=== PATIENT | male | born 1945 | race Caucasian/White ===

== ENCOUNTER → 2018-04-06 | Outpatient (CLI) | payer OTHER | LOC: MRI 09:07 | DX: D31 Benign neoplasm of eye and adnexa (principal); I67.82 Cerebral ischemia; H05.222 Edema of left orbit; Z98.42 Cataract extraction status, left eye; Z98.41 Cataract extraction status, right eye ==

== ENCOUNTER 2018-06-17 22:50 | Emergency (ER) | payer OTHER ==
[~2018-06-17] VITALS: Ht 177.8 cm; Wt 99.8 kg
--- NOTE | ~2018-06-17 | EKG ---
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
[2018-06-17 23:42] LABS: HEMOGLOBIN 14.1 gm/dL (14.0-18.0); MCH 29.8 pg (26.0-34.0); MCHC 34.4 g/dL (28.0-37.0); MCV 86.7 fL (80.0-100.0); RBC 4.73 mil/uL (4.50-6.00); RDW 13.2 % (10.5-14.5); WBC 6.8 thou/uL (4.0-11.0)
[2018-06-17 23:44] LABS: ANION GAP 8 mmol/L (7-16); BUN 21 mg/dL (7-18); CALCIUM 8.8 mg/dL (8.5-10.1); CHLORIDE 106 mmol/L (98-107); CO2 28 mmol/L (21-32); GLUCOSE 114 mg/dL (74-106); POTASSIUM 3.5 mmol/L (3.5-5.1); SODIUM 142 mmol/L (136-145)
[2018-06-17 23:53] LABS: ALBUMIN 3.6 g/dL (3.4-5.0); SGOT 23 U/L (15-37); SGPT 36 U/L (30-65); TOTAL BILIRUBIN 0.5 mg/dL (<0.1-1.0); TOTAL PROTEIN 7.1 g/dL (6.4-8.2); TROPONIN-I <0.06 ng/mL (<0.06)
[2018-06-18 00:44] VITALS: BP 161/85
[2018-07-13] MEDS ORDERED: BENICAR20 MG PO (11:01)
[2018-07-13] MEDS ORDERED: BYSTOLIC 5 MG5 M1 PO (11:01)
[2018-07-13] MEDS ORDERED: MOBIC15 MG PO (11:02)
[2018-07-13] MEDS ORDERED: ATORVASTATIN CA40 MG PO (11:02)
[2018-07-13] MEDS ORDERED: ZYRTEC10 M5 PO (11:03)
[2018-07-13] MEDS ORDERED: FISH OIL 1,001000 M2 PO (11:03)
[2018-07-13] MEDS ORDERED: ASPIR 8181 MG PO (11:03)
[2018-07-13] MEDS ORDERED: NEXIUM20 MG PO (11:03)
[2018-07-13] MEDS ORDERED: [UNRECOGNIZED DRUG - OTHER] NASAL (11:04)
[2018-07-13] MEDS ORDERED: AYR SALINE NASA14 GM NASAL (11:05)
[2018-07-13] MEDS ORDERED: ZICAM NASAL (11:06)
== END 2018-06-18 00:46 | disposition home or self-care (01) ==
LOC: ER 22:50
PROVIDERS: Emergency Medicine
DX: I10 Essential (primary) hypertension (principal)

== ENCOUNTER 2018-07-17 05:29 | Day surgery (SDC) | payer OTHER ==
[~2018-07-17] VITALS: Ht 177.8 cm; Wt 99.8 kg
--- NOTE | ~2018-07-17 | PATH ---
[facility] [address] [place] [address] PATHOLOGY RPT PROCEDURE Name: PIERRE PRATER Room #: DEP [facility] M.R.#: [id number] Admission: 07/17/18 Date of : 47 Discharge: 07/17/18 Report #: [id number] Path Case #: [id number] [facility] Accession Number: [id number] . 01 Material submitted: . PORTION LEFT LACRIMAL GLAND . 01 Clinical history: . 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 02 Diagnosis: Lacrimal gland, "lacrimal gland biopsy": - Focal central collections of vessels suggestive if a hemangioma - Benign lacrimal gland with moderate chronic inflammation and fibrosis. - There is no evidence of malignancy. - Suggest clinical correlation. (SHA:adilson; 07/19/2018) MBR/07/19/2018 . 02 Electronically signed: . Adeel Mayberry MD, Pathologist NPI- [id number] . 01 Gross description: . The specimen is received in formalin, labeled "Rice, Pierre, portion left lacrimal gland", is an irregular fragment of turner-montoya rubbery soft tissue 1.5 x 0.7 x 0.6 cm. Serially sectioned and entirely submitted in A1. (SWS; 07/18/2018) SHS/SHS . 02 Pathologist provided ICD-10: H04.412 . 02 CPT . 879957 Specimen Comment: A courtesy copy of this report has been sent to Specimen Comment: [phone], , . Specimen Comment: Report sent to / DR BULLARD / DR VILLAVICENCIO Performed at: [address], [place] [id number] MD Isidro Azevedo MD Phone: [phone] Performed at: [address] [id number] MD Susy Watson MD Phone: [phone]
--- NOTE | ~2018-07-17 | O ---
[facility] [place] [address] OPERATIVE REPORT Name: BORIS PRATER Room #: 150-5 [facility]..#: [id number] Admission: 07/17/18 Attend Phys: Dario Gonzales MD Discharge: Date of : 47 Report #: [id number] THIS REPORT FOR: //name// CC: Mark Gonzales DATE OF SERVICE: 07/17/2018 PREOPERATIVE DIAGNOSIS: Left lacrimal gland mass. POSTOPERATIVE DIAGNOSIS: Left lacrimal gland mass. PROCEDURE: Left lateral orbitotomy with removal of bone and lesion. SURGEON: Dario Gonzales M.D. BSW: Mark Durbin MD ANESTHESIA: General. COMPLICATIONS: None. ESTIMATED BLOOD LOSS: 5 mL. INDICATIONS FOR SURGERY: This pleasant 73-year-old gentleman has a painless left dacryomegaly with minimal signs externally of inflammation. He is presumed to most likely have a benign lacrimal gland tumor, although an inflammatory process is also under consideration. Lack of inflammatory changes externally, however, generally mitigate against that being the most likely diagnosis, which is once again thought to be a benign lacrimal gland mass, such as a benign mixed tumor of the lacrimal gland. The current procedure is being undertaken in order to determine the histologic nature of the underlying problem in order that directed therapy can be undertaken. Informed consent was obtained to include but not limited to potential risk for loss of vision, bleeding, infection, failure to improve the problem, the potential need for further surgery or treatment. DESCRIPTION OF PROCEDURE: The patient was taken to the operating room where general anesthesia was administered. The left lateral orbit was then anesthetized with Xylocaine with epinephrine mixed with equal parts 0.75% Marcaine with Wydase. The patient was then prepped and draped in the usual sterile fashion, received intravenous antibiotics and Decadron at the beginning of the case. A fine tip skin marking pen was then utilized to outline a left [facility] [address] [place] [address] OPERATIVE REPORT Name: BORIS PRATER Room #: 150-5 [facility]..#: [id number] Admission: 07/17/18 Attend Phys: Dario Gonzales MD Discharge: Date of : 47 Report #: [id number] upper lid crease incision out into the infratemporal fossa. The incision was then made with a 15C blade. The dissection was then carried down with a [place] needle on to the lateral orbital rim. The periosteum was then incised across the rim from the reflection of the roof to the floor. A [place]ans periosteal elevator was then used to elevate the periosteum out of the lateral orbit in the infratemporal fossa where the temporalis muscle was sculpted from the backside of the lateral orbital bone. A Co[place]ymans periosteal elevator was then used to elevate the periosteum internally where the zygomaticofacial and zygomaticotemporal neurovascular bundles were cauterized as they were encountered. The orbital contents were then protected with a malleable retractor as the temporalis muscle was retracted laterally as an oscillating saw was used to make a cut through the lateral orbit at the reflection of the roof and the reflection of the floor. Copious irrigation and suction was undertaken concomitantly as these cuts were made. A rongeur was then used to outfracture the bony orbital rim. The temporalis muscle was then packed with several 0.5 x 3 inch saline-soaked cottonoids and retracted out of the field as the deeper bone was brought to a blunt edge from its sharp edge from the fracture. The gland as palpated transperiosteally was unimpressive compared to the preoperative imaging. The periosteum was opened and the lacrimal gland was identified utilizing combination of blunt and sharp techniques. Minimal monopolar cautery was used as necessary to control bleeding. The lacrimal gland was not crisply defined and appeared to be infiltrated somewhat with fat. It was not well encapsulated. The decision was made to just biopsy the gland rather than excise it as this process appeared to be more consistent with an inflammatory process rather than a neoplastic one or a benign mixed tumor as it has been thought at the beginning of the case. The anterior lateral tip of the lacrimal gland was then amputated, following which hemostasis was achieved with pinpoint monopolar cautery. The cottonoids were removed from the field and the temporalis muscle was cauterized as necessary. The periosteum was then closed with interrupted Vicryl sutures. The subcutaneous structures were then closed with interrupted Vicryl sutures both deep and superficially. The skin was closed with 6-0 plain gut sutures. The bone removed at the beginning of the case was not replaced at the end of the procedure. The wound was then dressed with erythromycin ophthalmic ointment. The patient subsequently transported to the recovery area having tolerated the procedure well with no anesthetic or operative complications being noted. By: 1758 1829 Dario Gonzales MD /nt
[~2018-07-17 05:29] MED LIST: ASPIR 8181 MG PO; ATORVASTATIN CA40 MG PO; AYR SALINE NASA14 GM NASAL; BENICAR20 MG PO; BYSTOLIC 5 MG5 M1 PO; FISH OIL 1,001000 M2 PO; MOBIC15 MG PO; NEXIUM20 MG PO; ZICAM NASAL; ZYRTEC10 M5 PO; [UNRECOGNIZED DRUG - OTHER] NASAL
== END 2018-07-17 19:07 | disposition home or self-care (01) ==
LOC: TBA 05:29 → OR 05:29
DX: H04.02 Chronic dacryoadenitis (principal); H04.89 Other disorders of lacrimal system; I10 Essential (primary) hypertension; K21.9 Gastro-esophageal reflux disease without esophagitis; Z98.41 Cataract extraction status, right eye; Z98.42 Cataract extraction status, left eye; Z95.5 Presence of coronary angioplasty implant and graft; Z98.890 Other specified postprocedural states; Z79.899 Other long term (current) drug therapy; Z87.891 Personal history of nicotine dependence; Z79.82 Long term (current) use of aspirin
CPT/HCPCS: 50010; 50101; 50386; 50398; 51636; 53010; 56528; 56531; 56871; 62110; 62900; 70005

== ENCOUNTER → 2019-10-04 | Outpatient (CLI) | payer OTHER | LOC: CAT 11:35 | DX: N28.9 Disorder of kidney and ureter, unspecified (principal); I77.811 Abdominal aortic ectasia ==

== ENCOUNTER → 2020-02-11 | Outpatient (CLI) | payer OTHER | LOC: SJCVCIMAG 08:16 | DX: I25.119 Atherosclerotic heart disease of native coronary artery with unspecified angina pectoris (principal); I10 Essential (primary) hypertension; E78.5 Hyperlipidemia, unspecified; Z95.5 Presence of coronary angioplasty implant and graft ==

== ENCOUNTER → 2021-02-16 | Outpatient (CLI) | payer OTHER | LOC: SJCVC 13:21 | PROVIDERS: ATTEND Internal Medicine Cardiovascular Disease | DX: R94.31 Abnormal electrocardiogram [ECG] [EKG] (principal); I45.2 Bifascicular block; R00.1 Bradycardia, unspecified; I25.119 Atherosclerotic heart disease of native coronary artery with unspecified angina pectoris; I10 Essential (primary) hypertension; E78.5 Hyperlipidemia, unspecified; R53.83 Other fatigue; Z86.16 Personal history of COVID-19; Z79.82 Long term (current) use of aspirin; Z79.899 Other long term (current) drug therapy; Z87.891 Personal history of nicotine dependence; Z72.89 Other problems related to lifestyle ==

== ENCOUNTER → 2021-08-12 | Outpatient (CLI) | payer OTHER | LOC: SJCVCIMAG 13:13 | PROVIDERS: ATTEND Internal Medicine Cardiovascular Disease | DX: I25.10 Atherosclerotic heart disease of native coronary artery without angina pectoris (principal); Z95.1 Presence of aortocoronary bypass graft; I10 Essential (primary) hypertension; E78.5 Hyperlipidemia, unspecified; Z79.82 Long term (current) use of aspirin; Z79.899 Other long term (current) drug therapy ==